=== PATIENT | male | born 1975 | race Caucasian/White ===

== ENCOUNTER 2019-12-06 21:33 | Emergency (ER) | payer SELFPAY ==
[~2019-12-06] VITALS: Ht 177.8 cm; Wt 74.8 kg
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
[2019-12-06 21:42] VITALS: BP 150/85
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
== END 2019-12-06 22:18 | disposition left against medical advice (07) ==
LOC: EDBD → ER 21:35
DX: R51 Headache (principal); Z53.21 Procedure and treatment not carried out due to patient leaving prior to being seen by health care provider

== ENCOUNTER 2019-12-06 23:33 | Emergency (ER) | payer SELFPAY ==
[~2019-12-06] VITALS: Ht 172.7 cm; Wt 74.8 kg
[2019-12-06 23:35] VITALS: BP 128/82
--- NOTE | 2019-12-06 23:38 | NUR ---
SEEN AND EXAMINED BY .
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
--- NOTE | 2019-12-06 23:43 | NUR ---
Patient given written and verbal discharge instructions. Patient verbalizes understanding of instructions. Patient is ambulatory with steady gait. Refuses offer of intermediate placement. Patient given list of available shelters in surrounding area.
== END 2019-12-06 23:46 | disposition home or self-care (01) ==
LOC: ER 23:35
DX: S01.432A Puncture wound without foreign body of left cheek and temporomandibular area, initial encounter (principal); Z86.73 Personal history of transient ischemic attack (TIA), and cerebral infarction without residual deficits; Z59.0 Homelessness; Y04.8XXA Assault by other bodily force, initial encounter; Y93.89 Activity, other specified; Y92.89 Other specified places as the place of occurrence of the external cause; Y99.8 Other external cause status

== ENCOUNTER 2021-08-23 06:23 | Emergency (ER) | payer OTHER ==
[~2021-08-23] VITALS: Ht 175.3 cm; Wt 77.1 kg
[2021-08-23 06:43] VITALS: BP 132/80
== END 2021-08-23 09:09 | disposition home or self-care (01) ==
LOC: ER 06:26
DX: M79.672 Pain in left foot (principal); M79.671 Pain in right foot; Z59.00 Homelessness unspecified

== ENCOUNTER 2022-03-13 06:09 | Emergency (ER) | payer OTHER ==
[~2022-03-13] VITALS: Ht 177.8 cm; Wt 58.5 kg
[2022-03-13 06:15] VITALS: BP 134/66
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
--- NOTE | 2022-03-13 06:39 | NUR ---
PATIENT REFUSED X RAY
--- NOTE | 2022-03-13 06:41 | NUR ---
Patient discharged to home in stable condition. patient did not want to wait for Written after care instructions
== END 2022-03-13 06:42 | disposition home or self-care (01) ==
LOC: ER 06:09
DX: M79.672 Pain in left foot (principal); Z86.73 Personal history of transient ischemic attack (TIA), and cerebral infarction without residual deficits; Z59.00 Homelessness unspecified